=== PATIENT | male | born 1980 ===

== ENCOUNTER 2022-07-03 15:45 | Emergency (ER) | payer MEDICAID, SELFPAY ==
[2022-07-03 15:52] VITALS: BP 134/91; PULSE 104; RESP 18; O2SAT 96
--- NOTE | 2022-07-03 16:00 | RT.EKG_ITS ---
APPROVED REPORT Exam: Resting ECG Reason for Exam: dizziness Patient Location: E HR:100 bpm ECG Measurements Heart Rate 100 AXIS ND 133 P 43 QRSd 94 QRS 4 QT 346 T 112 QTc 445 Conclusion Sinus tachycardia...rate> 99 Nonspecific T abnormalities, lateral leads...T <-0.10mV, I aVL V5 V6
--- NOTE | 2022-07-03 16:18 | W.ED.GENAD ---
Discharge Plan Disposition Patient Disposition: Home Condition: Improving Discharge Details Clinical Impression: Dizziness Primary Care Provider: None,None ED Provider: Kurtis Henry Home Meds and New Rx's Prescriptions: Continued metformin 500 mg Tablet 500 mg PO TID atorvastatin 10 mg Tablet 10 mg PO DAILY allopurinol 100 mg Tablet 100 mg PO DAILY Discharge Instructions Instructions: Dizziness (ED) Additional Instructions: If you develop any new or significant worsening of symptoms return to the emergency department for reassessment. Otherwise follow-up with your primary care provider for recheck if not fully improved. Stay well-hydrated as I feel this may contributed to your symptoms. Referrals: Primary Care Provider [Outside] (As needed for reassessment) Medical Decision Making Patient presenting to the emergency department for chief complaint of not feeling well. He states that yesterday he started not feeling well and started having some nausea, general malaise, general weakness and feeling feverish. Patient does state that he has been dealing with a tooth ache for the past week but denies any swelling drainage or current pain or discomfort. Physical exam is unremarkable for any specific findings beyond some noted dental decay but no signs of abscess. Patient does have past medical history of diabetes, hyperlipidemia, and gout. Patient is also on vaccinated for COVID or influenza. We will plan on checking labs, fluid, giving liter of fluid and Toradol pending results. Please see physician interpretation for full interpretation of EKG but patient appears to be in sinus rhythm and does not meet acute STEMI criteria. Reviewed patient's labs and white count is elevated at 13.91 and neutrophils at 11.52 otherwise unremarkable CBC, CMP shows slightly elevated glucose at 178 and ALT at 66 but again otherwise nondiagnostic, negative lipase negative troponin. Patient is also negative for COVID flu and RSV and urinalysis also is unremarkable. Reassessed patient and patient states significant improvement has no symptoms and feels ready to be discharged home. No obvious finding was noted for patient feeling ill beyond the fact that he states he had not been drinking much water. Encouraged patient to continue to monitor symptoms and return for new or worsening symptoms otherwise to follow-up with primary care provider for reassessment if not fully continued in his improvement. After discussion of diagnosis and plan of care patient has no further needs, questions, or concerns and states clear understanding to return to the emergency department for any worsening symptoms. This documentation was generated using [employer] system, please disregard any oddities of phrase or misspellings. Lab Data Lab results reviewed: Yes I reviewed the patient's lab results. Sign Out No HPI General Mode of arrival: ambulatory. Date/Time Provider Initiated Documentation: 07/03/22 15:47. Limitations to Documentation: no limitations. Information obtained by: patient, family and RN notes reviewed. History of Present Illness 42 year old M presents to the emergency department with the chief complaint of not feeling well, Quality is described as other (denies pain ), Patient started experiencing this day(s) (2) and it has been constant. No relieving factors improve symptom(s), No exacerbating factors reported . Patient notes fever/chills, malaise and weakness; denies cough. Patient did receive the following treatments prior to arrival, none Related Data Home Medications Medication Instructions Recorded Confirmed allopurinol 100 mg tablet 100 mg PO DAILY 07/03/22 07/03/22 atorvastatin 10 mg tablet 10 mg PO DAILY 07/03/22 07/03/22 metformin 500 mg tablet 500 mg PO TID 07/03/22 07/03/22 Allergies Allergy/AdvReac Type Severity Reaction Status Date / Time No Known Allergies Allergy Unverified 07/03/22 15:57 General Stated Complaint: GenMedical DENNY: 4 Review of Systems Constitutional Constitutional: Reports chills, Reports fever(s), Denies headache(s), Reports malaise and Reports poor appetite Eyes Eyes: Denies blurry vision ENT Ears, Nose, Mouth, and Throat: Denies dizziness, Denies headache(s), Denies nasal congestion and Denies sore throat Cardiovascular Cardiovascular: Denies chest pain, Denies syncope, Reports lightheadedness and Denies dyspnea Respiratory Respiratory: Denies cough and Denies dyspnea Gastrointestinal Gastrointestinal: Denies abdominal pain, Reports nausea and Denies vomiting Genitourinary Genitourinary: Reports system reviewed and no additional complaints, except as documented Musculoskeletal Musculoskeletal: Reports myalgias and Reports numbness Integumentary/Breasts Skin/Breast: Denies erythema and Denies rash Neurologic Neurologic: Denies confusion, Denies dizziness, Denies syncope, Denies headache(s) and Reports numbness Psychiatric Psychiatric: Denies confusion Endocrine Endocrine: Denies polyuria PFSH All Active Problems (Updated 07/03/22 @ 18:48 by Kurtis Henry NP) Dizziness (Acute) Hyperlipidemia (Acute) Diabetes (Chronic) Medical History Gout Social History Smoking/Tobacco Use Status: Never Smoking risk assessment performed?: Yes Alcohol Intake: current Alcohol Intake frequency: a few times a month Drug use: Never Substance use type: does not use Do you feel safe at home: Yes Do you feel safe in your relationship?: Yes Exam Const General: cooperative, healthy appearing, no acute distress and well groomed Orientation: alert, awake and oriented x3 HENMT Head: normal to inspection Ears: hearing grossly normal bilaterally and TM's normal bilaterally Face and sinus: normal facial exam Mouth: oral mucosae normal, lip normal, tongue normal and moist mucous membranes Teeth and gingiva: gingiva normal and caries Throat: posterior oropharynx normal Eyes Visual Mera: normal visual mera by confrontation Alignment and Position: alignment normal Periorbital: periorbital findings normal Eyelids: eyelids normal Sclera: sclerae normal Pupils: PERRL EOM: EOM intact bilaterally Neck Neck: normal visual inspection, full ROM and no meningeal signs Resp Effort & Inspection: normal respiratory effort and able to speak in complete sentences Auscultation: clear to auscultation bilaterally Cardio Rate: regular rate Rhythm: regular rhythm Heart Sounds: S1 normal and S2 normal Neuro General: patient alert, patient awake, patient oriented x3, gait normal, tone normal, moves all extremities, CN's II-XI intact bilaterally and not confused Cognition: normal cognition Speech: speech normal Motor: muscle tone normal throughout, strength 5/5 throughout, no movement abnormalities noted and no fasciculations Sensory Exam: no sensory deficits noted Coordination: Romberg test normal Course Vital Signs Vital signs: Vital Signs Pulse 104 H 07/03/22 15:52 Respiratory Rate 18 07/03/22 15:52 Blood Pressure 134/91 H 07/03/22 15:52 Pulse Oximetry 96 07/03/22 15:52 Pulse 104 H 07/03/22 15:52 Respiratory Rate 18 07/03/22 15:52 Blood Pressure 134/91 H 07/03/22 15:52 Pulse Oximetry 96 07/03/22 15:52 Oxygen Delivery Method Room Air 07/03/22 15:52 Oxygen Flow Rate 0 07/03/22 15:52 Pain Level 0 07/03/22 15:52
[2022-07-03 16:39] LABS: Abs Immature Grans 0.06 10^3/uL (0.0-0.06); Absolute Basophil Count 0.04 10^3/uL (0.0-0.2); Absolute Eosinophil Count 0.11 10^3/uL (0.0-0.7); Absolute Monocyte Count 0.74 10^3/uL (0.1-0.8); Absolute Neutrophil Count 11.52 10^3/uL (1.2-6.7); Basophils % 0.3; Eosinophils % 0.8; HCT 39.7 % (40.0-50.0); HGB 13.8 g/dL (13.5-17.5); Immature Grans % 0.4; Lymphocytes % 10.4; MCHC 34.8 % (32.0-36.0); MCV 89 fL (80-95); Monocytes % 5.3; Neutrophils % 82.8; Platelet Count 171 10^3/uL (130-400); RBC 4.45 10^6/uL (4.36-5.78); RDW 11.6 % (11.8-14.1); RDW-SD 37.3 fL; WBC 13.91 10^3/uL (4.4-10.8)
[2022-07-03 16:42] LABS: Absolute Lymphocyte Count 1.45 10^3/uL (1.2-3.4)
[2022-07-03] MEDS: Normal Saline 1,000 ML 1000 ML IV (16:47)
[2022-07-03] MEDS: Ketorolac 30 MG/ML VIAL IVP (16:47)
[2022-07-03 16:51] LABS: Bilirubin Negative (Negative); Blood Negative (Negative); Clarity Clear (Clear); Glucose Negative (Negative); Ketones Negative (Negative); Leukocyte Esterase Negative (Negative); Nitrite Negative (Negative); Specific Gravity 1.025 (1.005-1.025); Urobilinogen 0.2 EU/dL (Up TO 0.2); pH 6.5 (5-8)
[2022-07-03 16:56] LABS: ALT 66 U/L (16-63); AST 26 U/L (15-37); Albumin 4.3 g/dL (3.4-5.0); Alkaline Phosphatase 73 U/L (46-116); Anion Gap 10.3 mmol/L (3-11); BUN 11 mg/dL (7-18); Bilirubin, Total 0.9 mg/dL (0.2-1.0); CO2 28.7 mmol/L (21.0-32.0); CREATININE 1.3 mg/dL (0.70-1.30); Calcium 8.9 mg/dL (8.5-10.1); Chloride 99 mmol/L (98-107); Estimated GFR 70.78 (mL/min/1.73m2); Glucose 178 mg/dL (74-106); Lipase 48 U/L (73-393); Magnesium 1.9 mg/dL (1.8-2.4); Potassium 3.5 mmol/L (3.5-5.1); Sodium 138 mmol/L (136-145); Total Protein 8.1 g/dL (6.4-8.2); Troponin I < 50 ng/L (<or=60)
[2022-07-03 17:26] LABS: COVID-19 PCR Negative (Negative); Influenza A PCR Negative (Negative); Influenza B PCR Negative (Negative); RSV PCR Negative (Negative)
[2022-07-03 17:27] LABS: Source Nasopharynx
== END 2022-07-03 18:55 | disposition home or self-care (01) ==
PROVIDERS: Emergency Provider Nurse Practitioner Family
DX: R42 Dizziness and giddiness (principal); R53.1 Weakness; D72.829 Elevated white blood cell count, unspecified; R53.81 Other malaise; R11.0 Nausea; R73.9 Hyperglycemia, unspecified; K02.9 Dental caries, unspecified; Z20.822 Contact with and (suspected) exposure to COVID-19
CPT/HCPCS: 80053; 83690; 87637; 93005; 96361; 96374; 99284; 81003; 83735; 84484; 85025; 93010; J1885

== ENCOUNTER 2022-10-24 05:02 | Emergency (ER) | payer MEDICAID, SELFPAY ==
[2022-10-24 05:06] VITALS: BP 161/90; PULSE 63; RESP 16; TEMP 36.4; O2SAT 96
[2022-10-24 05:10] VITALS: BP 161/90; PULSE 89
--- NOTE | 2022-10-24 05:11 | ED.GENADUL_ITS ---
Discharge Plan Discharge Details Chief Complaint: Orthopedic Clinical Impression: Diabetic infection of left foot, Blood pressure elevated without history of HTN, Type 2 diabetes mellitus with hyperglycemia Primary Care Provider: Jannet Sheets ED Provider: Martin Sands Barrett Meds and New Rx's Prescriptions: New cephalexin 500 mg capsule 500 mg PO QID 7 Days Qty: 28 0RF Continued metformin 500 mg Tablet 500 mg PO TID atorvastatin 10 mg Tablet 10 mg PO DAILY allopurinol 100 mg Tablet 100 mg PO DAILY Discharge Instructions Instructions: Diabetic Hyperglycemia (ED) Additional Instructions: Please read all of the information that accompanies these instructions. You were seen in the emergency department for your foot pain. Your CAT scan showed no sign of a dangerous infection but you have signs of a skin infection called cellulitis. Please schedule an appointment with your primary care provider later this week. Please return to the emergency department if you develop worsening pain swelling fevers nausea or vomiting or if you cannot tolerate your antibiotics as directed. You may return to work and work as you are able. Activity:: Activity as Tolerated Activity:: Activity as Tolerated Medical Decision Making This is an uncomfortable appearing hypertensive but normothermic and not tachycardic 42-year-old male with indolent onset left foot pain and history of diabetes concerning for necrotizing soft tissue infection based on pain out of proportion and diabetic foot infection given erythema or warmth tenderness and swelling. On my preliminary read of the plain films there is no obvious soft tissue gas. We will proceed to CT scan to ensure no signs of necrotizing soft tissue infection. If CT is unremarkable will defer MRI at this point as patient lacks signs of deeper soft tissue infection as he has no obvious ulcer and his pain is not overlying a bony prominence. No polydipsia nor polyuria to suggest DKA. Patient is not septic appearing so I did not order blood cultures, lactate, nor treat empirically with broad-spectrum antibiotics. Given the season and lack of tick bites I am not concerned for Lyme disease. No si gnificant trauma to suggest Cooper fracture. Left foot warm and well-perfused so I am not concerned for critical lower extremity ischemia. No bullae to suggest Roblero-Charles's nor TEN. No recent URI symptoms to suggest reactive arthritis. No history of sexually transmitted infection to suggest gonococcal arthritis. Given history of diabetes Charcot arthropathy is also on the differential. I considered DVT however the patient has no calf tenderness and lacks risk factors for DVT. If CT is unremarkable we will treat for strep and staph with cephalexin, 500 mg every 6 hours for 7 days. 6:30 AM ESR mildly elevated. CBC lacks leukocytosis anemia and thrombocytopenia. 6:45 AM Basic metabolic panel with normal renal function, mild hyperglycemia but no anion gap to suggest DKA. Mildly elevated CRP at 3.14 mg/dL. Reassuring creatinine kinase. 7:15 AM We will sign patient out to oncoming daytime provider pending read of CT scan. Patient reports his pain is under control. We will discharge if CT is reassuring with a work note. We will keep patient weightbearing as tolerated with a walking boot. Will have patient seen by his PCP within the next week. I will ask health community outreach director Carlos to coordinate this. I have written patient up with contingent discharge instructions to be used if his CT does not show any signs of necrotizing soft tissue infection or deep space infections. Chronic conditions affecting the care of the patient: Diabetes History obtained from an outside historian: N/A External record review: N/A Diagnostic interpretations performed by me: [Per my independent interpretation x-ray shows:] No soft tissue gas Medications: IV acetaminophen Social determinants of health affecting disposition: N/A Management discussed with: Oncoming daytime ED provider Treatment/interventions considered: Considered MRI however in the absence of any obvious ulcers my suspicion was low for osteomyelitis Response to therapies provided: Pain improved with acetaminophen HPI General Date/Time Provider Initiated Documentation: 10/24/22 05:07 . HPI Narrative: This is a 42-year-old male with a history of hyperlipidemia and [id number] diabetes now in the emergency department with left foot pain. Patient notes that 2 nights ago he noticed pain in the lateral side of his left foot. He began drinking more water as he has a history of gout and felt as if he may be having a flare of his gout. He denies increased thirst and he has not been urinating more than usual. He has never had gout in the lateral side of his foot but has had it in his great toes and knees in the past. He reports a worsening throbbing pain this evening which woke him from sleep and brought him to the emergency department. He has not noticed any signs of any foot ulcers. He is a daily tobacco user and occasionally smokes marijuana but denies routine ethanol. He reports that his A1c was last checked in [place] was 7.2%. He has an upcoming PCP appointment locally on November 20 as he has moved in with his anthony's family. He works as a lease purchase truck driver. He has no history of diabetic nephropathy. He denies any specific trauma to his left foot although he speculates that he may have stepped down on it awkwardly several days ago. He has had difficulty bearing weight on his left foot since yesterday. He denies fevers nausea vomiting chest pain or shortness of breath. Related Data Home Medications Medication Instructions Recorded Confirmed allopurinol 100 mg tablet 100 mg PO DAILY 07/03/22 10/24/22 atorvastatin 10 mg tablet 10 mg PO DAILY 07/03/22 10/24/22 metformin 500 mg tablet 500 mg PO TID 07/03/22 10/24/22 cephalexin 500 mg capsule 500 mg PO QID 7 days #28 caps 10/24/22 Previous Rx's Medication Instructions Recorded cephalexin 500 mg capsule 500 mg PO QID 7 days #28 caps 10/24/22 Allergies Allergy/AdvReac Type Severity Reaction Status Date / Time No Known Allergies Allergy Unverified 09/19/22 14:51 General Stated Complaint: Orthopedic DENNY: 4 PFSH All Active Problems (Updated 10/24/22 @ 06:48 by Martin Sands MD) Diabetic infection of left foot (Acute) Blood pressure elevated without history of HTN (Acute) Type 2 diabetes mellitus with hyperglycemia (Acute) Hyperlipidemia (Acute) Diabetes (Chronic) Medical History Gout Social History Smoking/Tobacco Use Status: Never Tobacco: How many years used: 25 Smoking risk assessment performed?: Yes Alcohol Intake: current Alcohol Intake frequency: a few times a month Drug use: Daily Substance use type: marijuana Do you feel safe at home: Yes Do you feel safe in your relationship?: Yes Exam Narrative Exam Narrative: General: Well-appearing in no acute distress speaking in complete sentences. Head: Normocephalic, atraumatic Ear, nose, mouth, throat: Grossly normal inspection. Normal voice, handling secretions normally. Neck: Trachea midline. Cardiovascular: Well-perfused distal extremities. Respiratory: Nonlabored respiration. Gastrointestinal: Nondistended abdomen. Musculoskeletal: On the left lateral aspect of the patient's left foot there is warmth erythema swelling and tenderness. There is no obvious skin breakdown nor ulceration. Left foot is warm well perfused with a 2+ left radial pulse. Patient has intact sensation in his left foot. Skin: Normal for age and race, grossly normal temperature and turgor. No acute rash. Neurologic: Alert and appropriate, no apparent acute deficits. Psychiatric: Mood and manner are appropriate. Grooming and personal hygiene are appropriate. Course Vital Signs Vital signs: Vital Signs Temperature 36.4 C 10/24/22 05:06 Pulse 63 10/24/22 05:06 Respiratory Rate 16 10/24/22 05:06 Blood Pressure 161/90 H 10/24/22 05:06 Pulse Oximetry 96 10/24/22 05:06 Temperature 36.4 C 10/24/22 05:06 Temperature Source Oral 10/24/22 05:06 Pulse 63 10/24/22 05:06 Respiratory Rate 16 10/24/22 05:06 Blood Pressure 161/90 H 10/24/22 05:06 Blood Pressure Position Sitting 10/24/22 05:06 Pulse Oximetry 96 10/24/22 05:06 Oxygen Delivery Method Room Air 10/24/22 05:06 Oxygen Flow Rate 0 10/24/22 05:06 Pain Level 10 10/24/22 05:06
--- NOTE | 2022-10-24 05:25 | DI.RAD_ITS ---
Exam(s) XR FOOT LT COMPLETE EXAM: XR FOOT LT COMPLETE CLINICAL HISTORY: Left lateral foot pain atraumatic. TECHNIQUE: 2D digital imaging was performed. Three views. COMPARISON: No exams were available for comparison FINDINGS: BONES: No acute fracture is present. No bony destructive lesion is seen. Accessory navicular. Small calcaneal spurs. JOINTS: No dislocation present. No significant degenerative changes. SOFT TISSUE: Mild lateral swelling. No foreign body or gas collection. IMPRESSION: Mild lateral soft tissue swelling. DATA REPOSITORY: RADIATION DOSE DELIVERED:
--- NOTE | 2022-10-24 05:30 | DI.CT_ITS ---
Exam(s) CT LOWER EXTREMITY LT W EXAM: CT LOWER EXTREMITY LT W CLINICAL HISTORY: Left foot pain warmth tenderness. TECHNIQUE: Imaging Protocol: Axial computed tomography images with coronal and sagittal reformatted images were created and reviewed. CONTRAST MATERIAL: Intravenous: Omnipaque 350 Contrast volume:100 ml Contrast route:IV - COMPARISON: CR,XR XR FOOT LT COMPLETE from 10/24/2022 FINDINGS: Bones: The osseous structures and articular surfaces are intact. There is no evidence of fracture or dislocation. Bony alignment is satisfactory. No cellulitic or osteomyelitic changes are identified. There is no joint space narrowing or cystic degeneration seen. No lytic or sclerotic lesions are id entified. There are small heel spurs. Soft Tissues: Mild soft tissue swelling at the lateral foot. No drainable collection. No gas colle ction. Vasculature unremarkable. IMPRESSION: Mild lateral soft tissue swelling. No evidence of abscess or fracture. RADIATION DOSE DELIVERED: 226.36mGy.cm Total DLP DATA REPOSITORY: All CT scans at this facility are submitted to the National Radiology Data Registry (NRDR) Dose Index Registry (DIR) with the [employer] (A[employer]). RADIATION OPTIMIZATION: All CT scans at this facility use at least one of these dose optimization te chniques: automated exposure control; mA and/or kV adjustment per patient size (includes targeted exa ms where dose is matched to clinical indication); or iterative reconstruction.
[2022-10-24] MEDS: ACETAMINOPHEN 1,000 MG/100 ML BTL 400 MG IVPB (06:01)
[2022-10-24 06:05] LABS: Abs Immature Grans 0.01 10^3/uL (0.0-0.06); Absolute Basophil Count 0.03 10^3/uL (0.0-0.2); Absolute Eosinophil Count 0.17 10^3/uL (0.0-0.7); Absolute Lymphocyte Count 2.02 10^3/uL (1.2-3.4); Absolute Monocyte Count 0.48 10^3/uL (0.1-0.8); Absolute Neutrophil Count 3.59 10^3/uL (1.2-6.7); Basophils % 0.5; Eosinophils % 2.7; HCT 38.6 % (40.0-50.0); HGB 13.6 g/dL (13.5-17.5); Immature Grans % 0.2; Lymphocytes % 32.1; MCH 31.1 pg (27.0-33.0); MCHC 35.2 % (32.0-36.0); MCV 88 fL (80-95); MPV 10.8 fL (8.0-11.0); Monocytes % 7.6; Neutrophils % 56.9; Platelet Count 171 10^3/uL (130-400); RBC 4.38 10^6/uL (4.36-5.78); RDW 11.6 % (11.8-14.1); RDW-SD 37.3 fL
[2022-10-24 06:14] LABS: ESR 17 mm/hr (0-15)
[2022-10-24] MEDS: Omnipaque 350 MG/ML 100 ML BTL IJ (06:20)
[2022-10-24 06:35] LABS: Anion Gap 8.5 mmol/L (3-11); BUN 12 mg/dL (7-18); C-Reactive Protein 3.14 mg/dL (0.0-0.3); CO2 29.5 mmol/L (21.0-32.0); CREATININE 1.1 mg/dL (0.70-1.30); Calcium 9.3 mg/dL (8.5-10.1); Chloride 101 mmol/L (98-107); Creatine Kinase 94 U/L (39-308); Estimated GFR 86.49 (mL/min/1.73m2); Glucose 205 mg/dL (74-106); Potassium 3.6 mmol/L (3.5-5.1); Sodium 139 mmol/L (136-145)
[2022-10-24] MEDS: Normal Saline - Diluent 50 ML VIAL IJ (06:38)
[2022-10-24 06:45] VITALS: BP 143/92; PULSE 86
[2022-10-24] MEDS: Cephalexin 500 MG CAP PO (07:29)
[2022-10-24 07:31] VITALS: BP 155/99; PULSE 81; RESP 16; O2SAT 96
--- NOTE | 2022-10-24 09:11 | DI.VRAD_ITS ---
PROCEDURE INFORMATION: Exam: XR Left Foot Exam date and time: 10/24/2022 5:37 AM Age: 42 years old Clinical indication: Patient HX: Left lateral foot pain atraumatic. TECHNIQUE: Imaging protocol: Radiologic exam of the left foot. 3image(s) are provided. Views: 3 or more views. COMPARISON: No relevant prior studies available. FINDINGS: Bones/joints: There is some plantar and calcaneal spurring including at the Achilles insertion site. There is some accessory ossification site averaging for example adjacent to the navicular and cuboid margin. Osseous alignment is maintained.No displaced fracture or dislocation is appreciated.No cortical irregularity or periosteal reaction is appreciated. There is some mild degeneration of the 1st metatarsophalangeal junction. Soft tissues: There is slight prominence of the soft tissues suggestive of slight soft tissue swelling. No gross soft tissue abnormality or radiopaque foreign body is appreciated. No diffuse subcutaneous emphysema is appreciated. IMPRESSION: There is slight soft tissue swelling with maintained osseous alignment.No fracture or dislocation is appreciated. Dictated and Authenticated by: Gamal Waldrop MD. Ordering:JONATHON Salazar MD
--- NOTE | 2022-10-24 09:29 | DI.VRAD_ITS ---
PROCEDURE INFORMATION: Exam: CT Left Lower Extremity With Contrast, Foot Exam date and time: 10/24/2022 6:25 AM Age: 42 years old Clinical indication: Other: Pain, warmth, and tenderness; Foot; Left.No history of trauma or recent surgery is provided. TECHNIQUE: Imaging protocol: CT of the left lower extremity with intravenous contrast was performed. Exam focused on the foot. 954image(s) are provided. Radiation optimization: All CT scans at this facility use at least one of these dose optimization techniques: automated exposure control; mA and/or kV adjustment per patient size (includes targeted exams where dose is matched to clinical indication); or iterative reconstruction. Contrast material: OMNIPAQUE 350; Contrast volume: 100 ml; Contrast route: INTRAVENOUS (IV); COMPARISON: CR XR FOOT LT COMPLETE 10/24/2022 5:37 AM FINDINGS: Bones/joints: Osseous alignment is maintained.No displaced fracture or dislocation is appreciated. Ankle mortise alignment is maintained. There is some chronic degenerative spurring including at the ankle mortise distal fibula. There is some accessory ossification site averaging including about the navicular and cuboid margins. There is some mild chronic degeneration of the 1st tarsometatarsal and metatarsophalangeal junction. Ligamentous evaluation is limited. The visualized tendon complexes appear grossly intact although there is some irregular thickening suggested about the peroneal tendons and could represent some thickening or tendinopathy related sequela. Soft tissues: There is slight soft tissue swelling edematous appearance. No organized subcutaneous fluid collections are appreciated. Some of the soft tissue swelling is most pronounced at the anterolateral aspect. Vasculature: Vascular enhancement is overall demonstrated. Distal small vascular evaluation is limited. Other findings: No other significant interval changes are appreciated. IMPRESSION: 1. There is slight soft tissue swelling with the edematous appearance anterolaterally predominant. Consider if there is history of inflammation or skin irregularity. No organized subcutaneous fluid collections are appreciated. 2. Osseous alignment is maintained.No fracture or dislocation is appreciated. 3. There appears to be some asymmetric thickening about the peroneal tendons overall. Consider if there is localized point tenderness or history of injury. MRI of the ankle correlation could be performed for further evaluation as clinically warranted. Dictated and Authenticated by: Gamal Waldrop MD. Ordering:JONATHON Salazar MD
--- NOTE | 2022-10-24 09:36 | ED.PROG_ITS ---
Date of service: 10/24/22 Time of Service: 07:30 Medical Decision Making 729 --please see Dr. Sands's note for initial presentation, exam and plan. Case endorsed to follow-up on CT imaging result. Patient is a 42-year-old male with a history of type 2 diabetes on metformin and gout who presents with left lateral foot pain and swelling since yesterday. 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 He denies any fever, chills or body aches. He states he took a dose of his allopurinol and drank a lot of water yesterday as he thought it may have been a gout flare but had no improvement. Patient states he does not check his glucose at home as he does not have a working glucometer but states his A1c was 7.2% in 2020. Patient recently moved here from [place] and has an appointment with a primary care doctor to establish care in [place] on November 20. His left lateral foot appears edematous and is tender to palpation. He has increased pain with range of motion. There is very minimal erythema but no fluctuance, induration or crepitus. His distal pulses are intact. There is no ecchymosis or deformity. Suspect most likely early cellulitis. Also consider sprain or gout flare. History and presentation does not appear consistent with septic arthritis or DVT. 929 --CT reviewed with Dr. Triplett and notes mild lateral soft tissue swelling but no evidence of abscess or fracture. Patient requested a work note as he has to wear steel tipped boots at work. He has been placed in a short walking boot here. He is advised to rest and elevate his left foot is much as possible. Dr. Sands has provided a prescription for Keflex which patient is advised to take as directed until finished. We will place patient on care management's list to arrange for a follow-up appointment with a primary care doctor within the next week for reevaluation. Usual and customary return precautions given prior to discharge. Medical Records Medical records reviewed: Yes I reviewed the patient's medical records. Sign Out Sign Out Data: Sign Out Comment: Follow-up read of x-ray and CT. Patient has been written up with contingent discharge instructions. Primary care follow-up has been requested. Patient will be weightbearing as tolerated in a walking boot. Last updated by Martin Sands MD at 10/24/22 07:24 Discharge Plan Disposition Patient Disposition: Home Discharge Details Clinical Impression: Diabetic infection of left foot, Blood pressure elevated without history of HTN, Type 2 diabetes mellitus with hyperglycemia Primary Care Provider: Jannet Sheest ED Provider: Chantal Goel Home Meds and New Rx's Prescriptions: New cephalexin 500 mg capsule 500 mg PO QID 7 Days Qty: 28 0RF atorvastatin 10 mg tablet 10 mg PO DAILY Qty: 30 0RF (DME) blood-glucose meter Kit See Rx Instructions .Route Qty: 1 0RF Rx Instructions: As directed (DME) blood sugar diagnostic Strip See Rx Instructions .Route Qty: 30 0RF Rx Instructions: As directed (DME) lancet-gluc test strip-needles Combo Pack See Rx Instructions .Route Qty: 300 0RF Rx Instructions: As directed Continued metformin 500 mg Tablet 500 mg PO TID atorvastatin 10 mg Tablet 10 mg PO DAILY allopurinol 100 mg Tablet 100 mg PO DAILY Discharge Instructions Instructions: Cellulitis (ED), Diabetic Hyperglycemia (ED) Additional Instructions: Please read all of the information that accompanies these instructions. You were seen in the emergency department for your foot pain. Your CT scan showed mild lateral soft tissue swelling but no evidence of abscess or fracture. Your foot pain and swelling may be secondary to an early skin infection called cellulitis. Other possibilities also include a ligament sprain or gout flare. Alternate tylenol and motrin as needed and directed for pain. A prescription for antibiotics has been sent electronically to your pharmacy to take as directed until finished. Prescriptions for a glucometer and supplies have been sent electronically to your pharmacy as well to monitor your glucose in addition to a prescription for your atorvastatin per your request. You have been placed on care management's list to arrange for a follow-up appointment with a primary care doctor within the next week for reevaluation. Return immediately to the emergency department if you develop any worsening or new concerning symptoms such as fever, increased pain, redness, swelling or any other concerns. Stand Alone Forms: Work Release Discharge Data Discharge Physician: Chantal Goel
--- NOTE | 2022-10-29 10:47 | NUR.NOTE ---
Nursing Note: Accessed patient chart to print provider note to be faxed to [facility] for billing purposes.
--- NOTE | 2022-10-29 10:47 | NUR.NOTE ---
Nursing Note: Accessed patient chart to print provider note to be faxed to [facility] for billing purposes.
== END 2022-10-24 10:07 | disposition home or self-care (01) ==
PROVIDERS: Emergency Medicine; Emergency Provider Physician Assistant; PCP Family Medicine
DX: E11.65 Type 2 diabetes mellitus with hyperglycemia (principal); E11.628 Type 2 diabetes mellitus with other skin complications; L08.9 Local infection of the skin and subcutaneous tissue, unspecified; R03.0 Elevated blood-pressure reading, without diagnosis of hypertension; D69.6 Thrombocytopenia, unspecified; R70.0 Elevated erythrocyte sedimentation rate; D64.9 Anemia, unspecified; D72.829 Elevated white blood cell count, unspecified; R79.82 Elevated C-reactive protein (CRP); Z79.82 Long term (current) use of aspirin
CPT/HCPCS: 36415; 80048; 82550; 85652; 96374; 99285; 73630; 73701; 85025; 86140; 99284; J0131; J3490

== ENCOUNTER 2023-09-08 05:58 | Emergency (ER) | payer OTHER, SELFPAY ==
[2023-09-08 06:07] VITALS: BP 159/116; PULSE 80; RESP 18; TEMP 36.5; O2SAT 98
[2023-09-08 06:12] VITALS: BP 159/116; PULSE 80; RESP 18; TEMP 36.5; O2SAT 98
--- NOTE | 2023-09-08 06:22 | ED.GENADUL_ITS ---
HPI General Mode of arrival: ambulatory . Date/Time Provider Initiated Documentation: 09/08/23 06:06 . Limitations to Documentation: no limitations . Information obtained by: patient . HPI Narrative: 43yo M with DM, gout, presenting with right lower tooth pain. Multiple cavities, has not seen in a dentist in 'a while'. Pain significant over the past two days, worse this morning. Does not seem particularly affected by temperature, is worse with pressure. No facial swelling or rash. No fevers. He is otherwise in his usual state of health. Related Data Home Medications Medication Instructions Recorded Confirmed allopurinol 100 mg tablet 100 mg PO DAILY 07/03/22 09/08/23 atorvastatin 10 mg tablet 10 mg PO DAILY 07/03/22 10/31/22 metformin 500 mg tablet 500 mg PO TID 07/03/22 09/08/23 atorvastatin 10 mg tablet 10 mg PO DAILY #30 tabs 10/24/22 09/08/23 blood sugar diagnostic #30 ea 10/24/22 10/31/22 blood-glucose meter #1 ea 10/24/22 10/31/22 lancet with blood glucose test #300 ea 10/24/22 10/31/22 strips and pen needles combo pack acetaminophen 500 mg tablet 500 mg PO Q6H PRN #60 tabs 09/08/23 (Tylenol Extra Strength) ibuprofen 800 mg tablet 800 mg PO Q8H PRN #60 tabs 09/08/23 Previous Rx's Medication Instructions Recorded atorvastatin 10 mg tablet 10 mg PO DAILY #30 tabs 10/24/22 blood sugar diagnostic #30 ea 10/24/22 blood-glucose meter #1 ea 10/24/22 lancet with blood glucose test #300 ea 10/24/22 strips and pen needles combo pack acetaminophen 500 mg tablet 500 mg PO Q6H PRN #60 tabs 09/08/23 (Tylenol Extra Strength) ibuprofen 800 mg tablet 800 mg PO Q8H PRN #60 tabs 09/08/23 Allergies Allergy/AdvReac Type Severity Reaction Status Date / Time No Known Allergies Allergy Unverified 09/08/23 06:09 General Stated Complaint: DentalOral DENNY: 4 Review of Systems Narrative: see HPI Exam Narrative Exam Narrative: General: Alert, well appearing, well nourished, in no acute distress. Head: Normocephalic, atraumatic Neck: Trachea midline, ?Neck supple. No neck tenderness. ENT: ?MMM.? Carious teeth. #30 tender to percussions. No lesions or abscesses noted. No facial swelling. No mastoid tenderness. Cardiac: ?No cyanosis. Resp: No respiratory distress. Speaking in full sentences. Extremities: ?No deformities.? No peripheral edema. Neurologic: GCS 15. ? Moves all extremities freely against gravity Course Vital Signs Vital signs: Vital Signs Temperature 36.5 C 09/08/23 06:07 Pulse 80 09/08/23 06:07 Respiratory Rate 18 09/08/23 06:07 Blood Pressure 159/116 H 09/08/23 06:07 Pulse Oximetry 98 09/08/23 06:07 Temperature 36.5 C 09/08/23 06:12 Temperature Source Oral 09/08/23 06:12 Pulse 80 09/08/23 06:12 Respiratory Rate 18 09/08/23 06:12 Respiratory Effort Normal, Non-Labored 09/08/23 06:09 Blood Pressure 159/116 H 09/08/23 06:12 Blood Pressure Position Sitting 09/08/23 06:12 Pulse Oximetry 98 09/08/23 06:12 Oxygen Delivery Method Room Air 09/08/23 06:12 Oxygen Flow Rate 0 09/08/23 06:07 Pain Level 6 09/08/23 06:12 Medical Decision Making 43yo M with DM, gout, presenting with right lower tooth pain. Slightly hypertensive, vital signs otherwise reassuring. No facial swelling, no neck tenderness, exam not concerning for deep space neck infection, Ludwigs, Lemierres, etc; would not get labs or imaging. Tooth #30 tender to percussion. No visible abscesses. No indication for antibiotics at this time. Advised dental followup, symptomatic treatment at home; provided with dental list. Discharged home; discharge instructions and return precautions were reviewed with patient who verbalized understanding. All questions were answered and he is in full agreement with the plan. Quality:SDOH Health Related Social Needs: No Data to Display PFSH All Active Problems (Updated 09/08/23 @ 06:23 by Lis Camarillo MD) Dental caries (Acute) Hyperlipidemia (Acute) Medical History (Updated 09/08/23 @ 06:23 by Lis Camarillo MD) Gout Diabetes Surgical History (Updated 10/24/22 @ 09:37 by Chantal Goel DO) No significant past surgical history Social History Smoking/Tobacco Use Status: Never Tobacco: How many years used: 25 Smoking risk assessment performed?: Yes Alcohol Intake: current Alcohol Intake frequency: a few times a month Drug use: Daily Substance use type: marijuana Do you feel safe at home: Yes Do you feel safe in your relationship?: Yes Discharge Plan Disposition Patient Disposition: Home Condition: Good Discharge Details Clinical Impression: Dental caries Primary Care Provider: Jannet Sheets ED Provider: Lis Camarillo Home Meds and New Rx's Prescriptions: New ibuprofen 800 mg tablet 800 mg PO Q8H PRNQty: 60 0RF acetaminophen [Tylenol Extra Strength] 500 mg tablet 500 mg PO Q6H PRNQty: 60 0RF Continued metformin 500 mg Tablet 500 mg PO TID atorvastatin 10 mg Tablet 10 mg PO DAILY allopurinol 100 mg Tablet 100 mg PO DAILY atorvastatin 10 mg tablet 10 mg PO DAILY Qty: 30 0RF (DME) blood-glucose meter Kit See Rx Instructions .Route Qty: 1 0RF Rx Instructions: As directed (DME) blood sugar diagnostic Strip See Rx Instructions .Route Qty: 30 0RF Rx Instructions: As directed (DME) lancet-gluc test strip-needles Combo Pack See Rx Instructions .Route Qty: 300 0RF Rx Instructions: As directed Discharge Instructions Instructions: Dental Caries (ED) Additional Instructions: Tylenol and ibuprofen for pain; follow the directions on the bottle. Call a dentist on Saturday to schedule an appointment for as soon as possible. Call your primary care doctor on Saturday to schedule an appointment within the next week to followup on your visit here. Return to the emergency department for new or worsening symptoms including fever, facial swelling, or if you have any other concerns. Stand Alone Forms: Work Release Referrals: Jannet Sheets [Primary Care Provider] -
[2023-09-08] MEDS: Acetaminophen 325 MG TAB 650 MG PO (06:36)
[2023-09-08] MEDS: Benzocaine 20% Gel 30 GM JAR MM (06:36)
== END 2023-09-08 06:37 | disposition home or self-care (01) ==
LOC: ER 06:46
PROVIDERS: Emergency Provider Student in an Organized Health Care Education/Training Program; PCP Family Medicine
DX: R68.84 Jaw pain (principal); K02.9 Dental caries, unspecified
CPT/HCPCS: 99282; 99283

== ENCOUNTER 2023-12-29 14:30 | Emergency (ER) | payer SELFPAY ==
[2023-12-29 14:35] VITALS: BP 142/86; PULSE 75; RESP 18; TEMP 36.7; O2SAT 98
--- NOTE | 2023-12-29 15:21 | ED.GENADUL_ITS ---
Discharge Plan Disposition Patient Disposition: Home Condition: Stable Discharge Details Clinical Impression: Upper respiratory infection, viral Primary Care Provider: Jannet Sheets ED Provider: Rudy Ackerman Home Meds and New Rx's Prescriptions: No Action metformin 500 mg Tablet 500 mg PO TID atorvastatin 10 mg Tablet 10 mg PO DAILY allopurinol 100 mg Tablet 100 mg PO DAILY atorvastatin 10 mg tablet 10 mg PO DAILY Qty: 30 0RF (DME) blood-glucose meter Kit See Rx Instructions .Route Qty: 1 0RF Rx Instructions: As directed (DME) blood sugar diagnostic Strip See Rx Instructions .Route Qty: 30 0RF Rx Instructions: As directed (DME) lancet-gluc test strip-needles Combo Pack See Rx Instructions .Route Qty: 300 0RF Rx Instructions: As directed ibuprofen 800 mg tablet 800 mg PO Q8H PRNQty: 60 0RF acetaminophen [Tylenol Extra Strength] 500 mg tablet 500 mg PO Q6H PRNQty: 60 0RF Discharge Instructions Instructions: Upper Respiratory Infection (ED) Additional Instructions: Viral testing today is negative for COVID flu and RSV. You likely have another virus causing your symptoms. You can take pveo-hbf-oqxfbiv medications like Claritin, Mucinex, Flonase to help with your symptoms. Make sure to drink lots of water. You can do warm salt water gargles to help with sore throat. You can take Motrin and Tylenol as needed for discomfort, muscle soreness or any fever. Please follow-up with your primary care provider as needed for additional symptoms. HPI General Date/Time Provider Initiated Documentation: 12/29/23 14:31 . Limitations to Documentation: no limitations . Information obtained by: patient . HPI Narrative: 43y M with past medical history of hyperlipidemia presents for evaluation of URI symptoms. He reports the onset of symptoms today. He states that he woke up with a stuffy nose, sore throat and nasal congestion. He did take some Tylenol he reports that he has been having some cough, not significantly productive. Is a smoker. Denies any fever, nausea or vomiting. Has not tried any nsoh-vib-jqcfgki medications for cold symptoms. Related Data Home Medications Medication Instructions Recorded Confirmed allopurinol 100 mg tablet 100 mg PO DAILY 07/03/22 12/29/23 atorvastatin 10 mg tablet 10 mg PO DAILY 07/03/22 12/29/23 metformin 500 mg tablet 500 mg PO TID 07/03/22 12/29/23 atorvastatin 10 mg tablet 10 mg PO DAILY #30 tabs 10/24/22 12/29/23 blood sugar diagnostic #30 ea 10/24/22 12/29/23 blood-glucose meter #1 ea 10/24/22 12/29/23 lancet with blood glucose test #300 ea 10/24/22 12/29/23 strips and pen needles combo pack acetaminophen 500 mg tablet 500 mg PO Q6H PRN #60 tabs 09/08/23 12/29/23 (Tylenol Extra Strength) ibuprofen 800 mg tablet 800 mg PO Q8H PRN #60 tabs 09/08/23 12/29/23 Previous Rx's Medication Instructions Recorded atorvastatin 10 mg tablet 10 mg PO DAILY #30 tabs 10/24/22 blood sugar diagnostic #30 ea 10/24/22 blood-glucose meter #1 ea 10/24/22 lancet with blood glucose test #300 ea 10/24/22 strips and pen needles combo pack acetaminophen 500 mg tablet 500 mg PO Q6H PRN #60 tabs 09/08/23 (Tylenol Extra Strength) ibuprofen 800 mg tablet 800 mg PO Q8H PRN #60 tabs 09/08/23 Allergies Allergy/AdvReac Type Severity Reaction Status Date / Time No Known Allergies Allergy Unverified 12/29/23 14:37 General Stated Complaint: RespSymp DENNY: 4 Exam Narrative Exam Narrative: review of Systems: All systems reviewed & are unremarkable except as noted in HPI and below Well-developed, no acute distress NCAT PERRL, normal conjunctiva Bilateral TMs unremarkable, no erythema, fluid collection or bulging No significant nasal congestion Posterior oropharynx without any exudates No significant anterior cervical adenopathy RRR Unlabored respiratory effortm clear bilaterally, no wheezes or crackles Nondistended abdomen Extremities w/o deformity, no cyanosis, no edema No rashes or lesions. no focal neurologic deficits Appropriate mood and affect Course Vital Signs Vital signs: Vital Signs Temperature 36.7 C 12/29/23 14:35 Pulse 75 12/29/23 14:35 Respiratory Rate 18 12/29/23 14:35 Blood Pressure 142/86 H 12/29/23 14:35 Pulse Oximetry 98 12/29/23 14:35 Temperature 36.7 C 12/29/23 14:35 Temperature Source Temporal Artery Scan 12/29/23 14:35 Pulse 75 12/29/23 14:35 Respiratory Rate 18 12/29/23 14:35 Respiratory Effort Normal, Non-Labored 12/29/23 14:37 Blood Pressure 142/86 H 12/29/23 14:35 Blood Pressure Position Sitting 12/29/23 14:35 Pulse Oximetry 98 12/29/23 14:35 Oxygen Delivery Method Room Air 12/29/23 14:35 Oxygen Flow Rate 0 12/29/23 14:35 Pain Level 0 12/29/23 14:35 Lab/Test Results Lab/Test Results: 12/29/23 14:40 Tonsil - Left Group A Streptococcus Culture - Pending POC Strep Test-JANE(Rapid) Start: 12/29/23 14:41 Freq: Status: Active Protocol: Document 12/29/23 14:57 KHUSHI (Rec: 12/29/23 14:57 [id number]) Strep test-JANE(Rapid)-POC POC-Strep test-JANE (Rapid) Negative POC-Strep test-JANE (Rapid) Negative Medical Decision Making Emergent evaluation of URI symptoms. The patient is afebrile at this time, hemodynamically stable with a benign and reassuring examination. His symptoms are likely a viral illness. No symptoms concerning for strep throat on physical examination. He has no immune compromise or other significant risk factors for overwhelming illness. Viral testing has been obtained, and this is negative. Likely another virus causing the symptoms. Supportive guidance discussed with the patient and [id number]-[id number] medications recommended. Recommend follow-up closely with PCP and return precautions here have been advised. Medical Records Medical records reviewed: Yes I reviewed the patient's medical records. Lab Data Lab results reviewed: Yes I reviewed the patient's lab results. Quality:SDOH Health Related Social Needs: No Data to Display PFSH All Active Problems Upper respiratory infection, viral (Acute) Hyperlipidemia (Acute) Medical History Gout Diabetes Surgical History No significant past surgical history Social History Smoking/Tobacco Use Status: Never Tobacco: How many years used: 25 Smoking risk assessment performed?: Yes Alcohol Intake: former Drug use: Daily Substance use type: marijuana Do you feel safe at home: Yes Do you feel safe in your relationship?: Yes
[2023-12-29 15:23] LABS: COVID-19 PCR Negative (Negative); Influenza A PCR Negative (Negative); Influenza B PCR Negative (Negative); RSV PCR Negative (Negative)
[2023-12-29 15:27] LABS: Source Nasopharynx
[2023-12-29 15:41] VITALS: BP 142/86; PULSE 75; RESP 18; TEMP 36.7; O2SAT 98
== END 2023-12-29 15:46 | disposition home or self-care (01) ==
PROVIDERS: Emergency Provider Emergency Medicine; PCP Family Medicine
DX: J06.9 Acute upper respiratory infection, unspecified (principal); B97.4 Respiratory syncytial virus as the cause of diseases classified elsewhere; E11.9 Type 2 diabetes mellitus without complications; E78.5 Hyperlipidemia, unspecified; Z79.4 Long term (current) use of insulin
CPT/HCPCS: 87637; 87880; 99283; 87081

== ENCOUNTER 2024-11-09 23:19 | Emergency (ER) | payer SELFPAY ==
[2024-11-09 23:36] VITALS: BP 136/87; PULSE 85; RESP 16; TEMP 36.7; O2SAT 97
[2024-11-10] MEDS: Azithromycin 250 MG TAB 500 MG PO (00:16)
[2024-11-10] MEDS: predniSONE 20 MG TAB 40 MG PO (00:16)
[2024-11-10] MEDS: Albuterol HFA 8 GM 60 PUFF INH IH (00:16)
--- NOTE | 2024-11-10 00:16 | ED.GENADUL_ITS ---
Discharge Plan Disposition Patient Disposition: Home Condition: Improving Discharge Details Clinical Impression: Bronchitis due to tobacco use, Acute upper respiratory infection Primary Care Provider: Jannet Sheets ED Provider: Philip Jean Home Meds and New Rx's Prescriptions: New azithromycin [Zithromax] 250 mg tablet 250 mg PO DAILY 4 Days Qty: 4 0RF Rx Instructions: start on day 2 of therapy prednisone 20 mg tablet 20 mg PO DAILY Qty: 4 0RF No Action metformin 500 mg Tablet 500 mg PO TID atorvastatin 10 mg Tablet 10 mg PO DAILY allopurinol 100 mg Tablet 100 mg PO DAILY atorvastatin 10 mg tablet 10 mg PO DAILY Qty: 30 0RF (DME) blood-glucose meter Kit See Rx Instructions .Route Qty: 1 0RF Rx Instructions: As directed (DME) blood sugar diagnostic Strip See Rx Instructions .Route Qty: 30 0RF Rx Instructions: As directed (DME) lancet-gluc test strip-needles Combo Pack See Rx Instructions .Route Qty: 300 0RF Rx Instructions: As directed ibuprofen 800 mg tablet 800 mg PO Q8H PRNQty: 60 0RF acetaminophen [Tylenol Extra Strength] 500 mg tablet 500 mg PO Q6H PRNQty: 60 0RF Discharge Instructions Instructions: Acute bronchitis Additional Instructions: Take 1 Zithromax tablet every day for the next 4 days, beginning tomorrow. Take 1 prednisone tablet every day for the next 4 days, beginning tomorrow. You can take 2 puffs on the albuterol MDI provided with the spacer every 2-4 hours as ne eded for symptoms of coughing or shortness of breath. Quitting smoking or cutting down will significantly improve your symptoms over the short and long- term. Follow-up with your regular primary care doctor for reevaluation further management, especially if symptoms are not improving with this care plan. You can always return to the ER for any new concerns or sudden changes in your health which you feel require emergency medical attention. Discharge Data Discharge Physician: Philip Jean [facility] General Date/Time Provider Initiated Documentation: 11/09/24 23:31 . [facility] Narrative: The patient is a 44-year-old male, with a past medical history significant for gout, hyperlipidemia, and prediabetes, who presents to the emergency department this evening with complaints of bronchospastic coughing fits that have been ongoing for several days. The patient states that he originally started with a runny nose and scratchy throat on Saturday (2 days ago), but has progressed to having relatively significant bronchospastic coughing bouts. The patient is currently a smoker. The patient does have a prior history of reactive airway disease or asthma as a child, but has not used albuterol throughout most of their adult life. The patient states that they are having some ongoing intermittent chills but have not checked temperature at home to see if they are fevers. There is currently no sore throat or ear pain. Related Data Home Medications ?Medication ?Instructions ?Recorded ?Confirmed allopurinol 100 mg tablet 100 mg PO DAILY 07/03/22 11/09/24 atorvastatin 10 mg tablet 10 mg PO DAILY 07/03/22 11/09/24 metformin 500 mg tablet 500 mg PO TID 07/03/22 11/09/24 atorvastatin 10 mg tablet 10 mg PO DAILY #30 tabs 10/24/22 11/09/24 blood sugar diagnostic #30 ea 10/24/22 11/09/24 blood-glucose meter #1 ea 10/24/22 11/09/24 lancet with blood glucose test #300 ea 10/24/22 11/09/24 strips and pen needles combo pack acetaminophen 500 mg tablet 500 mg PO Q6H PRN #60 tabs 09/08/23 11/09/24 (Tylenol Extra Strength) ibuprofen 800 mg tablet 800 mg PO Q8H PRN #60 tabs 09/08/23 11/09/24 azithromycin 250 mg tablet 250 mg PO DAILY 4 days #4 tabs 11/10/24 (Zithromax) prednisone 20 mg tablet 20 mg PO DAILY #4 tabs 11/10/24 Previous Rx's ?Medication ?Instructions ?Recorded atorvastatin 10 mg tablet 10 mg PO DAILY #30 tabs 10/24/22 blood sugar diagnostic #30 ea 10/24/22 blood-glucose meter #1 ea 10/24/22 lancet with blood glucose test #300 ea 10/24/22 strips and pen needles combo pack acetaminophen 500 mg tablet 500 mg PO Q6H PRN #60 tabs 09/08/23 (Tylenol Extra Strength) ibuprofen 800 mg tablet 800 mg PO Q8H PRN #60 tabs 09/08/23 azithromycin 250 mg tablet 250 mg PO DAILY 4 days #4 tabs 04/22/25 (Zithromax) prednisone 20 mg tablet 20 mg PO DAILY #4 tabs 11/10/24 Allergies Allergy/AdvReac Type Severity Reaction Status Date / Time No Known Allergies Allergy Unverified 11/09/24 23:41 General Stated Complaint: RespSymp DENNY: 4 Exam Resp Effort & Inspection: normal respiratory effort, able to speak in complete sentences, cough Quality of cough: actively coughing, no respiratory distress and no use of accessory muscles Auscultation: clear to auscultation bilaterally Cardio Rate: regular rate Rhythm: regular rhythm Heart Sounds: S1 normal and S2 normal Skin General skin exam: no rashes or lesions noted, elasticity normal, turgor normal and dry skin Neuro General: patient alert, patient awake, patient oriented x3, normal light touch, pain and propioception, no focal motor deficits and CN's II-XI intact bilaterally Extrem General: full ROM, no clubbing and no cyanosis Psych Mental Status: mental status grossly normal Speech and Movement: speech and movement normal Mood: congruent mood Affect: normal affect Course Vital Signs Vital signs: Vital Signs Temperature 36.7 C 11/09/24 23:36 Pulse 85 11/09/24 23:36 Respiratory Rate 16 11/09/24 23:36 Blood Pressure 136/87 11/09/24 23:36 Pulse Oximetry 97 11/09/24 23:36 Temperature 36.7 C 11/09/24 23:36 Temperature Source Oral 11/09/24 23:36 Pulse 85 11/09/24 23:36 Respiratory Rate 16 11/09/24 23:36 Blood Pressure 136/87 11/09/24 23:36 Blood Pressure Position Sitting 11/09/24 23:36 Pulse Oximetry 97 11/09/24 23:36 Oxygen Delivery Method Room Air 11/09/24 23:36 Oxygen Flow Rate 0 11/09/24 23:36 Medical Decision Making The patient was seen and examined. He has relatively frequent paroxysmal bronchospastic coughing fits. However, the patient does not have any s ignificant wheezing and is moving air relatively well throughout his lungs. The patient has no increased work of breathing and does not appear to have retractions or other use of accessory muscles. There is no fever here to suggest that there is an underlying pneumonia. Given the fact that the patient continues to be a smoker, I elected to treat the patient with prednisone, oral Zithromax, and inhaled albuterol to help improve his symptoms, as a bridge to primary care follow-up. Quality:SDOH Health Related Social Needs: No Data to Display PFSH All Active Problems (Updated 11/10/24 @ 00:20 by Philip Jean MD) Acute upper respiratory infection (Acute) Bronchitis due to tobacco use (Acute) Hyperlipidemia (Acute) Medical History Gout Diabetes Surgical History No significant past surgical history Social History Smoking/Tobacco Use Status: Never Tobacco: How many years used: 25 Smoking risk assessment performed?: Yes Alcohol Intake: former Drug use: Daily Substance use type: marijuana Do you feel safe at home: Yes Do you feel safe in your relationship?: Yes
[2024-11-10 00:38] VITALS: BP 132/78; PULSE 80; RESP 16; O2SAT 98
== END 2024-11-10 00:39 | disposition home or self-care (01) ==
LOC: ER 11-10 00:43
PROVIDERS: Emergency Provider Emergency Medicine Emergency Medical Services; PCP Family Medicine
DX: J41.0 Simple chronic bronchitis (principal); J06.9 Acute upper respiratory infection, unspecified; E78.5 Hyperlipidemia, unspecified; E11.9 Type 2 diabetes mellitus without complications; Z79.84 Long term (current) use of oral hypoglycemic drugs; F17.210 Nicotine dependence, cigarettes, uncomplicated
CPT/HCPCS: 99283; J7512

== ENCOUNTER 2025-03-02 19:42 | Emergency (ER) | payer MEDICAID, SELFPAY ==
[2025-03-02 19:46] VITALS: BP 168/107; PULSE 73; RESP 18; TEMP 36.8; O2SAT 98
--- NOTE | 2025-03-02 19:51 | W.ED.GENAD ---
Discharge Plan Disposition Patient Disposition: Against Medical Advice Condition: Stable Discharge Details Clinical Impression: Left flank pain, Left against medical advice Primary Care Provider: Jannet Sheets ED Provider: Robinson Wharton Home Meds and New Rx's Prescriptions: No Action metformin 500 mg Tablet 500 mg PO TID atorvastatin 10 mg Tablet 10 mg PO DAILY allopurinol 100 mg Tablet 100 mg PO DAILY (DME) blood-glucose meter Kit See Rx Instructions .Route Qty: 1 0RF Rx Instructions: As directed (DME) blood sugar diagnostic Strip See Rx Instructions .Route Qty: 30 0RF Rx Instructions: As directed (DME) lancet-gluc test strip-needles Combo Pack See Rx Instructions .Route Qty: 300 0RF Rx Instructions: As directed ibuprofen 800 mg tablet 800 mg PO Q8H PRNQty: 60 0RF acetaminophen [Tylenol Extra Strength] 500 mg tablet 500 mg PO Q6H PRNQty: 60 0RF Discharge Instructions Instructions: Leaving Against Medical Advice, Flank Pain ED Additional Instructions: You were seen in the emergency department for your left flank pain with nausea and vomiting, it is possible you have a kidney stone versus a lumbar paraspinal muscle spasm. You refused blood work and imaging today, we are not ruling out a potentially life-threatening condition and you chose to leave AGAINST MEDICAL ADVICE despite risks of undiagnosed potentially fatal medical problems. Please do not hesitate to return for any emergent concerns. Discharge Data Discharge Date/Time-TO BE ENTERED AT DEPARTURE: 03/02/25 20:49 HPI General Date/Time Provider Initiated Documentation: 03/02/25 19:51. HPI Narrative: 44 year-old male presents to ED today by POV/ambulating with a chief complaint of L flank pain, feels like he has a kidney stone- with some nausea and vomiting with onset 1 hour prior to arrival. Quality described as generalized pain in L flank, no radiation to dysuria, urinary retention, bowel incontinence, midline back pain, chest pain, shortness of breath, fever. Severity is described as moderate. Palliating factors include nothing specific attempted. Provoking factors include nothing specific. Events leading up to the incident/Associated Symptoms: Patient endorses history of renal stones. Patient not anticoagulated. Related Data Home Medications ?Medication ?Instructions ?Recorded ?Confirmed allopurinol 100 mg tablet 100 mg PO DAILY 07/03/22 03/02/25 atorvastatin 10 mg tablet 10 mg PO DAILY 07/03/22 03/02/25 metformin 500 mg tablet 500 mg PO TID 07/03/22 03/02/25 blood sugar diagnostic #30 ea 10/24/22 11/09/24 blood-glucose meter #1 ea 10/24/22 11/09/24 lancet with blood glucose test #300 ea 10/24/22 11/09/24 strips and pen needles combo pack acetaminophen 500 mg tablet 500 mg PO Q6H PRN #60 tabs 09/08/23 03/02/25 (Tylenol Extra Strength) ibuprofen 800 mg tablet 800 mg PO Q8H PRN #60 tabs 09/08/23 03/02/25 Previous Rx's ?Medication ?Instructions ?Recorded blood sugar diagnostic #30 ea 10/24/22 blood-glucose meter #1 ea 10/24/22 lancet with blood glucose test #300 ea 10/24/22 strips and pen needles combo pack acetaminophen 500 mg tablet 500 mg PO Q6H PRN #60 tabs 09/08/23 (Tylenol Extra Strength) ibuprofen 800 mg tablet 800 mg PO Q8H PRN #60 tabs 09/08/23 Allergies Allergy/AdvReac Type Severity Reaction Status Date / Time No Known Allergies Allergy Unverified 03/02/25 19:50 General Stated Complaint: Abd Prob DENNY: 3 Review of Systems All systems reviewed & are unremarkable except as noted in HPI and below Exam Narrative Exam Narrative: GENERAL APPEARANCE: Well-nourished, non-toxic, awake and alert, atraumatic, no acute distress. SKIN: Warm, pink, dry, intact, without rashes/lesions/ulcerations. HEAD: Normocephalic, atraumatic, normal hair distribution for gender/age. EYES: Normal conjunctiva, no exudates on lids/lashes. ENT: Nares patent, no circumoral cyanosis, no facial swelling NECK: Supple, trachea midline, painless cervical ROM. LUNGS/CHEST: Lungs CTA bilaterally- no rhonchi/rales/wheezes diffusely, non-labored respirations, normal A/P diameter, symmetrical expansion, no chest wall deformity HEART (CV/PV): Regular rate and rhythm without murmur, no peripheral edema, no JVD. ABDOMEN: Soft, non-distended, no guarding, L CVA tenderness to percussion, L sided abdominal tenderness without peritoneal signs. MSK: Normal ROM, no swelling/deformity to bilateral UEs or LEs, moving all extremities without weakness, no cyanosis, spine midline without tenderness, normal curvature. NEURO: Mental Status AAOx4 - alert to person, place, time, events No facial droop, no forehead involvement. Motor: No focal weakness - strength 5/5 in bilateral UEs and LEs, proximal and distal, symmetric. Sensory: sensation intact to light touch globally. Gait normal: patient ambulated without ataxia into ED room. PSYCH: euthymic, cooperative, pleasant, appropriate speech Course Vital Signs Vital signs: Vital Signs Temperature 36.8 C 03/02/25 19:46 Pulse 73 03/02/25 19:46 Respiratory Rate 18 03/02/25 19:46 Blood Pressure 168/107 H 03/02/25 19:46 Pulse Oximetry 98 03/02/25 19:46 Temperature 36.8 C 03/02/25 19:46 Temperature Source Temporal Artery Scan 03/02/25 19:46 Pulse 73 03/02/25 19:46 Respiratory Rate 18 03/02/25 19:46 Blood Pressure 168/107 H 03/02/25 19:46 Pulse Oximetry 98 03/02/25 19:46 Oxygen Delivery Method Room Air 03/02/25 19:46 Oxygen Flow Rate 0 03/02/25 19:46 Pain Level 10 03/02/25 19:46 Medical Decision Making This dictation utilizes [id number] dictation software and may contain unedited grammatical errors. 44 year-old male presents to ED today by POV/ambulating with a chief complaint of L flank pain, feels like he has a kidney stone- with some nausea and vomiting with onset 1 hour prior to arrival. Quality described as generalized pain in L flank, no radiation to dysuria, urinary retention, bowel incontinence, midline back pain, chest pain, shortness of breath, fever. Severity is described as moderate. Palliating factors include nothing specific attempted. Provoking factors include nothing specific. Events leading up to the incident/Associated Symptoms: Patient endorses history of renal stones. Patients' medical history: hyperlipidemia, gout, diabetes. Family and social history: noncontributory. Pertinent exam findings / vital signs include L CVA tenderness, L sided abdominal tenderness, benign cardiopulmoanry exam, neuro intact. Differential / pathologies of concern include ureteral stone, infected kidney stone, lumbar muscle spasm, bowel pathology. Diagnostic studies of: - Had plan to perform laboratory workup with CBC, CMP, lactate, UA, CT ABD/pelvis-patient refused IV, refused workup. Interventions of: - Refused IV medications, given 1 g p.o. APAP, 30 mg IM ketorolac, 10 mg p.o cyclobenzaprine and a Lidoderm patch as the patient states he does not want a workup and it does feel like a muscle spasm. ED Course/Assessment/Plan: 44-year-old male with history of renal stones complains of left flank pain and abdominal pain, questions whether this is musculoskeletal back pain, he refused an IV, refused all workup was given some conservative management with pain reliever and muscle relaxer while I attempted to have him stay for basic workup he refused, had him sign AMA due to possibility of undiagnosed emergent conditions including coma and from infected kidney stone possibility, no pathology definitively ruled out, strict return criteria. Findings not consistent with overt infected kidney stone, his vitals were stable. Disposition of left AGAINST MEDICAL ADVICE, left flank pain. Patient verbalized understanding of the plan and return to ED criteria and engaged in shared decision making. Medical Records Medical records reviewed: Yes I reviewed the patient's medical records. [facility] All Active Problems (Updated 03/02/25 @ 20:38 by DEAN Suresh) Left against medical advice (Acute) Left flank pain (Acute) Hyperlipidemia (Acute) Medical History Gout Diabetes Surgical History No significant past surgical history Social History Smoking/Tobacco Use Status: Never Tobacco: How many years used: 25 Smoking risk assessment performed?: Yes Alcohol Intake: former Drug use: Daily Substance use type: marijuana Do you feel safe at home: Yes Do you feel safe in your relationship?: Yes
[2025-03-02] MEDS: Acetaminophen 500 MG TAB 1000 MG PO (20:20)
[2025-03-02] MEDS: Cyclobenzaprine 10 MG TAB PO (20:20)
[2025-03-02] MEDS: Lidocaine 5% Patch 1 PATCH TP (20:21)
[2025-03-02] MEDS: Ketorolac 30 MG/ML VIAL IM (20:21)
[2025-03-02 20:45] VITALS: BP 120/72; PULSE 72; RESP 18; TEMP 36.7; O2SAT 100
== END 2025-03-02 20:49 | disposition left against medical advice (07) ==
LOC: ER 20:54
PROVIDERS: Emergency Provider Physician Assistant; PCP Family Medicine
DX: R10.32 Left lower quadrant pain (principal); Z53.29 Procedure and treatment not carried out because of patient's decision for other reasons; R11.2 Nausea with vomiting, unspecified; R03.0 Elevated blood-pressure reading, without diagnosis of hypertension
CPT/HCPCS: 99284 ×2; 96372; 80053; 85025; J1885

== ENCOUNTER 2025-05-19 09:57 | Outpatient (REF) | payer MEDICAID, SELFPAY ==
[2025-05-19 15:15] LABS: HCT 39.6 % (40.0-50.0); HGB 14.1 g/dL (13.5-17.5); MCH 31.3 pg (27.0-33.0); MCHC 35.6 % (32.0-36.0); MCV 88 fL (80-95); MPV 12.0 fL (8.0-11.0); Platelet Count 185 10^3/uL (130-400); RBC 4.50 10^6/uL (4.36-5.78); RDW 11.8 % (11.8-14.1); RDW-SD 37.9 fL; WBC 4.85 10^3/uL (4.4-10.8)
[2025-05-19 15:38] LABS: ALT 43 U/L (16-63); AST 25 U/L (15-37); Albumin 4.2 g/dL (3.4-5.0); Alkaline Phosphatase 57 U/L (46-116); Anion Gap 10.1 mmol/L (3-11); BUN 11 mg/dL (7-18); Bilirubin, Total 1.0 mg/dL (0.2-1.0); CO2 28.9 mmol/L (21.0-32.0); Calcium 9.0 mg/dL (8.5-10.1); Calculated LDL 188 mg/dL (<100); Chloride 103 mmol/L (98-107); Cholesterol 250 mg/dL (<200); Estimated GFR 108.68 (mL/min/1.73m2); Glucose 112 mg/dL (74-106); HDL Cholesterol 46 mg/dL (>or=40); Potassium 3.8 mmol/L (3.5-5.1); Sodium 142 mmol/L (136-145); Total Protein 7.6 g/dL (6.4-8.2); Triglyceride 83 mg/dL (<150)
== END 2025-05-19 09:58 | disposition home or self-care (01) ==
LOC: NCHCN 09:57
PROVIDERS: PCP Family Medicine
DX: F17.200 Nicotine dependence, unspecified, uncomplicated (principal); Z00.00 Encounter for general adult medical examination without abnormal findings; E78.5 Hyperlipidemia, unspecified
CPT/HCPCS: 80053; 80061; 85027